=== PATIENT | female | born 1940 | race Hispanic/Latino ===

== ENCOUNTER → 2021-09-04 | Outpatient (CLI) | payer OTHER, MEDICARE ==
[~2021-09-04] VITALS: Ht 157.5 cm; Wt 60.1 kg
[~2021-09-04] MED LIST: 0.9% NACL 500ML IV.SOLN 500 ML IV SCH
[2021-09-04 15:51] LABS: BASOPHILS % (AUTO) 0.9 % (0.0-5.0); EOSINOPHILS % (AUTO) 3.5 % (0.0-8.0); HEMATOCRIT 35.8 % (36-48); LYMPHOCYTES % (AUTO) 41.5 % (21.0-51.0); MEAN CORPUSCULAR HEMOGLOBIN 28.3 pg (27.0-33.0); MEAN CORPUSCULAR HGB CONC 32.1 g/dL (32.0-36.0); MONOCYTES % (AUTO) 5.8 % (3.0-13.0); NEUTROPHILS % (AUTO) 47.9 % (40.0-77.0); PLATELET COUNT (AUTO) 258 K/uL (130-400); RED BLOOD CELL COUNT(AUTO) 4.07 MIL/uL (4.00-5.50); RED CELL DISTRIBUTION WIDTH 12.4 % (11.0-15.5); WHITE BLOOD COUNT (AUTO) 7.4 K/uL (4.8-10.8)
[2021-09-04 15:55] LABS: APPEARANCE,URINE Clear (CLEAR); BILIRUBIN,URINE Negative (NEGATIVE); COLOR,URINE Yellow (YELLOW); GLUCOSE, URINE (UA) Negative (NEGATIVE); KETONES,URINE Negative (NEGATIVE); LEUKOCYTE ESTERASE ,URINE Large (NEGATIVE); NITRATE,URINE Negative (NEGATIVE); OCCULT BLOOD,URINE Negative (NEGATIVE); PROTEIN,URINE Negative (NEGATIVE); UROBILINOGEN,URINE 0.2 mg/dL (0.2-1.0)
[2021-09-04 15:58] LABS: CREATININE 0.8 mg/dL (0.5-1.5); POTASSIUM 4.5 mmol/L (3.5-5.1)
[2021-09-04 16:01] LABS: INR 1.02 (0.85-1.15); PROTHROMBIN TIME 11.1 SEC (9.6-11.6)
[2021-09-04 16:02] LABS: PARTIAL THROMBOPLASTIN TIME 28.8 SEC (26.3-35.5)
[2021-09-04 16:09] LABS: RBC,URINE 0-1 /HPF (0-1)
[2021-09-04 16:12] LABS: BACTERIA,URINE Rare /HPF (None Seen); SQUAMOUS EPITHELIAL CELL,UR Few /HPF (0-2); TRANSITIONAL EPI CELLS,URINE Few /HPF (None Seen)
[2021-09-05 10:33] VITALS: BP 157/58
== END | disposition home or self-care (01) ==
LOC: DAH 10:00 → EDBD 14:00 → EDSTATUS 14:00
PROVIDERS: ATTEND Internal Medicine Cardiovascular Disease
DX: Z01.810 Encounter for preprocedural cardiovascular examination (principal); I25.10 Atherosclerotic heart disease of native coronary artery without angina pectoris; Z79.01 Long term (current) use of anticoagulants; Z79.899 Other long term (current) drug therapy; Z98.890 Other specified postprocedural states
CPT/HCPCS: 36415; 71045; 80048; 81001; 83880; 85025; 85610; 85730; 87088; 93005

== ENCOUNTER → 2022-10-28 | Outpatient (CLI) | payer OTHER, MEDICARE ==
[~2022-10-28] MED LIST changes: -0.9% NACL 500ML IV.SOLN 500 ML IV SCH; +ATOR40TA71 PO; +DORZ10DR10 OP; +ISOS30TA92 PO; +LATA7.5D OP; +LEVO88TA7 PO; +LISI20TA24 PO; +NITR0.4T50 SL; +PRAS10TA9 PO; +REGADENOSON 0.4 MG/5 ML PF SYG IVP ONE
== END | disposition home or self-care (01) ==
LOC: SHCH 08:24
PROVIDERS: ATTEND Internal Medicine Cardiovascular Disease
DX: I25.110 Atherosclerotic heart disease of native coronary artery with unstable angina pectoris (principal); R07.89 Other chest pain; I10 Essential (primary) hypertension; E78.5 Hyperlipidemia, unspecified; E03.9 Hypothyroidism, unspecified; Z95.5 Presence of coronary angioplasty implant and graft; Z79.899 Other long term (current) drug therapy; Z79.82 Long term (current) use of aspirin
CPT/HCPCS: 78452; 96374; 93017; J2785; A9500 ×2

== ENCOUNTER → 2024-05-26 | Outpatient (CLI) | payer OTHER, MEDICARE ==
[~2024-05-26] MED LIST changes: -REGADENOSON 0.4 MG/5 ML PF SYG IVP ONE
[2024-05-26] MEDS: REGADENOSON 0.4 MG/5 ML PF SYG IVP ONE (11:11)
--- NOTE | 2024-05-27 08:44 | HMCSR ---
APPROVED REPORT Height: 5 ft 2in Weight: 119 lbs TEST INDICATIONS CAD The imaging protocol used to acquire images was Rest Tc-99m/stress Tc-99m 1 day Consent: The procedure was explained and understood by the patient. Informerd consent was witnessed Mor CEBALLOS RN First, low dose rest was performed then high dose stress. RESTING DATA: The resting ekg shows: NSR Rest SPECT myocardial perfusion imaging was performed in supine position 88 minutes following the int ravenous injection of 10.4 mCi of Tc-99 Sestamibi. Time of rest injection: 09:09: Date: 05/26/2024 Time of rest imagin:37: Date: 05/26/2024 PHARMACOLOGIC STRESS: Pharmacologic stress test was performed by injecting regadenoson 0.4 mg IV push followed by the intra venous injection of 29.5 mCi of Tc-99 Sestamibi. Time of stress injection: 11:07: Date: 05/26/2024 Time of stress imagin:37: Date: 05/26/2024 Gated Stress SPECT was performed 90 minutes after stress injection. The images were gated to evaluate regional wall motion and calculate left ventricular ejection fracti on. STRESS DETAILS Reason for Termination: Infusion complete Stress Symptoms: Dyspnea Max HR Achieved: 88 bpm % of APMHR Achieved: 64 Max Blood Pressure: 149/72 mmHg Stress ECG: NSR Conclusion Mild apical ischemia No infarct LV ejection fraction 765 Normal LV wall motion Normal LV size at rest and stress No increased lung uptake
== END | disposition home or self-care (01) ==
LOC: SHCH 08:58
PROVIDERS: ATTEND Internal Medicine Cardiovascular Disease
DX: I25.9 Chronic ischemic heart disease, unspecified (principal); I25.10 Atherosclerotic heart disease of native coronary artery without angina pectoris; R06.00 Dyspnea, unspecified
CPT/HCPCS: 78452; 93017; J2785; A9500 ×2